=== PATIENT | male | born 1985 | race African-American/Black ===

== ENCOUNTER 2018-08-09 10:05 | Day surgery (SDC) | payer BC ==
--- NOTE | 2018-08-06 23:15 | Pre-op HX & Phy Repo 2 SIG ---
DATE OF ADMISSION: 08/09/2018 DATE OF SURGERY: Scheduled for 08/09/2017. 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 HISTORY: The patient is a pleasant 33-year-old gentleman who I initially saw on July 12, 2018 when he presented with severe traction and retinal detachments in both eyes. He has had decreased vision in both eyes occurring for approximately the past several months. He was noted elsewhere to have traction retinal detachment. He is now being admitted for pars plana vitrectomy, membrane peel, endolaser to his left eye. PAST MEDICAL HISTORY: Positive for type 2 diabetes since 2002, hypertension. PAST SURGICAL HISTORY: Notable for wrist fracture surgery and tonsillectomy at age 4. MEDICATIONS: Include metformin, lisinopril. ALLERGIES: He has no known drug allergies. PHYSICAL EXAMINATION: On examination visual acuity of hand motion to the right, 20/250 in the left eye. in the right eye, in the left eye. Slit-lamp demonstrates the conjunctiva is quiet, the cornea is clear. The anterior chamber is quiet. Lens are clear. 2+ nuclear sclerosis in the right eye and 1+ nuclear sclerosis in the left eye with no iris neovascularization noted . Dilated vitreoretinal examination of the right eye demonstrated hemorrhage in the media of the corpus. Neovascularization in the optic disk with a large inferior subhyaloid hemorrhage and a severe traction detachment involving the entire posterior pole and left eye media as hemorrhage and 3+ neovascularization of the optic disc. The cup-to-disc ratio is 0.4. There are some attenuated vessels and epiretinal membrane with a severe tractional retinal detachment overlying the posterior pole. IMPRESSION: Proliferative diabetic retinopathy with severe traction and retinal detachment. I discussed my findings with After detailed discussion of risks, benefits, and alternatives, I will recommend vitrectomy, membrane peel, endolaser of the left eye, more likely require silicone oil to maintain a retinal reattachment. Other complications such as loss of vision, loss of eye, cataract, ptosis, glaucoma, strabismus were all discussed. He understands and agrees to the surgery. Tyler Seymour M.D. DR: Christina JOB#: [id number] CC:
[~2018-08-09] VITALS: Ht 188 cm; Wt 99.8 kg
[~2018-08-09 10:05] MED LIST: METFORMIN HCL500 M1 ORAL
--- NOTE | 2018-08-09 12:39 | Pre-Procedure Note/Attestation ---
Pre-Procedure Note/Attestation Complete Prior to Procedure Planned Procedure: left Procedure Narrative: pars plana vitrectomy with membrane peel, endolaser, possible gas or silicone oil injection Indications for Procedure Pre-Operative Diagnosis: proliferative diabetic retinopathy with vitreous hemorrhage and traction retinal detachment. Attestation I attest that I discussed the nature of the procedure; its benefits; risks and complications; and alternatives (and the risks and benefits of such alternatives ), prior to the procedure, with the patient (or the patient's legal career representative). I attest that, if there was a reasonable possibility of needing a blood transfusion, the patient (or the patient's legal career representative) was given the [place] Department of Health Services standardized written summary, pursuant to the [place] Blood Safety Act ([place] Health and Safety Code # 1645, as amended). I attest that I re-evaluated the patient just prior to the surgery and that there has been no change in the patient's H&P, except as documented below: Tyler Seymour MD Aug 09, 2018 12:39
[2018-08-09] MEDS ORDERED: Lidocaine 4% Amp ONE (14:20)
[2018-08-09] MEDS ORDERED: Cyclopentolate 1% Opth Sol 2ml ONE (14:20)
[2018-08-09] MEDS ORDERED: Tropicamide 1% Opth 15ml Soln ONE (14:20)
[2018-08-09] MEDS ORDERED: Phenylephrine 2.5% Op 2ml Soln ONE (14:20)
[2018-08-09] MEDS ORDERED: EPINEPHrine 1mg/1ml Amp ONE (14:20)
[2018-08-09] MEDS ORDERED: Goniotaire 2.5% Opth Soln - 15ml ONE (14:20)
[2018-08-09] MEDS ORDERED: Bupivacaine 0.75% 30ml vial INJ ONE (14:21)
[2018-08-09] MEDS ORDERED: BSS 500ml btl ONE (14:21)
[2018-08-09] MEDS ORDERED: BSS 15ml BTL ONE (14:21)
[2018-08-09] MEDS ORDERED: Vigamox Opth Soln 3ml ONE (14:21)
[2018-08-09] MEDS ORDERED: Tetracaine 0.5% Opth 4ml Soln ONE (14:21)
[2018-08-09] MEDS ORDERED: Povidone-Iodine 5% opth solution ONE (14:21)
[2018-08-09] MEDS ORDERED: Indocyanine Green 25mg Inj INJ ONE (14:30)
[2018-08-09] MEDS ORDERED: LR 1000ml 1,000 ML IVLG SCH (14:58)
--- NOTE | 2018-08-09 14:58 | Anethesia Preoperative Eval ---
Anesthesia Pre-op PMH/ROS General Date of Evaluation: Aug 09, 2018 Anesthesiologist: Gustabo ASA Score: ASA 2 Mallampati Score Class I : Soft palate, uvula, fauces, pillars visible Class II: Soft palate, uvula, fauces visible Class III: Soft palate, base of uvula visible Class IV: Only hard plate visible Mallampati Classification: Class III Surgeon: Dawn Diagnosis: Left retinal detachment Surgical Procedure: Left eye vitrecomty Anesthesia History: none Family History: no anesthesia problems Allergies: Coded Allergies: No Known Allergies (Unverified , 08/05/18) Medications: see eMAR Patient NPO?: Yes NPO Date: Aug 08, 2018 NPO Time: 22:00 Past Medical History Cardiovascular: Reports: HTN; Denies: CAD, [place], valve dz, arrhythmia, other Pulmonary: Denies: asthma, COPD, KARLA, other Gastrointestinal/Genitourinary: Denies: GERD, CRI, ESRD, other Neurologic/Psychiatric: Reports: depression/anxiety; Denies: dementia, CVA, TIA, other Endocrine: Reports: DM; Denies: hypothyroidism, steroids, other HEENT: Denies: cataract (L), cataract (R), glaucoma, [place] (L), [place] (R), other Hematology/Immune: Denies: anemia, DVT, bleeding disorder, other Musculoskeletal/Integumentary: Denies: OA, RA, DJD, DDD, edema, other Other: obesity Anesthesia Pre-op Phys. Exam Physician Exam see chart Constitutional: NAD Cardiovascular: RRR Respiratory: CTA Airway Exam Mallampati Score: Class II MO: limited ROM: limited Teeth: intact Anesthesia Pre-op A/P Labs see chart Studies Pre-op Studies: EKG - sr Risk Assessment & Plan Assessment: ASA II Plan: MAC Status Change Before Surgery: No Pre-Antibiotics Drug: N/A Ashanti Velasco MD Aug 09, 2018 14:58
[2018-08-09 15:00] VITALS: BP 146/88
[2018-08-09] MEDS ORDERED: Vigamox Opth Soln 3ml LEFT EYE SCH (15:00)
[2018-08-09] MEDS ORDERED: DiphenhydrAMINE 50mg/ml Inj IVP PRN (15:00)
[2018-08-09] MEDS ORDERED: Tetracaine 0.5% Opth 4ml Soln LEFT EYE SCH (15:00)
[2018-08-09] MEDS ORDERED: Midazolam 2mg/2ml Inj ONE ×3 (15:01→16:20)
[2018-08-09] MEDS ORDERED: Propofol 200mg/20ml IV ONE (15:02)
[2018-08-09] MEDS ORDERED: fentaNYL 100 mcg/2 mL IV ONE (15:02)
[2018-08-09] MEDS ORDERED: Phenylephrine 2.5% Op 2ml Soln LEFT EYE ONE (15:15)
[2018-08-09] MEDS: Cyclopentolate 1% Opth Sol 2ml LEFT EYE SCH ×3 (15:18→15:29)
[2018-08-09] MEDS: Tropicamide 1% Opth 15ml Soln LEFT EYE SCH ×3 (15:19→15:29)
[2018-08-09] MEDS ORDERED: Vigamox Opth Soln 3ml LEFT EYE ONE (15:30)
[2018-08-09] MEDS ORDERED: DiphenhydrAMINE 50mg/ml Inj ONE ×2 (15:40→16:20)
[2018-08-09] MEDS ORDERED: Dexamethasone 4mg/ml vial ONE (15:58)
[2018-08-09] MEDS ORDERED: Sterile Water Irrig 1000ml IRRIG ONE (16:00)
[2018-08-09] MEDS ORDERED: LR 1000ml ONE (16:00)
[2018-08-09] MEDS ORDERED: Lidocaine 1% MPF 10mg/ml 5ml ONE (16:00)
[2018-08-09] MEDS ORDERED: NS Irrig 1000ml ONE (16:00)
[2018-08-09 17:10] VITALS: BP 131/84
--- NOTE | 2018-08-09 17:13 | Brief Operative Note ---
Immediate Post Operative Note Operative Note Pre-op Diagnosis: proliferative diabetic retinopathy with vitreous hemorrhage and traction retinal detachment. Procedure: pars plana vitrectomy with membrane peel, endolaser, and silicone oil injection Post-op Diagnosis: same as pre-op Findings: consistent w/pre-op dx studies Surgeon: Dawn Anesthesiologist: Gustabo Anesthesia: local, MAC Specimen: none Complications: none Condition: stable Fluids: 0 Estimated Blood Loss: none Drains: none Packin Tourniquet time: 0 Implant(s) used?: No Tyler Seymour MD Aug 09, 2018 17:13
[2018-08-09] MEDS ORDERED: Flumazenil 0.1mg/ml 5ml Inj IV ONE (17:14)
[2018-08-09 17:15] VITALS: BP 117/85
--- NOTE | 2018-08-09 17:19 | Immediate Post-Op Evaluation ---
Immediate Post-Op Evalulation Immediate Post-Op Evalulation Procedure: Left eye vitrectomy Date of Evaluation: Aug 09, 2018 Time of Evaluation: 17:15 IV Fluids: 600 Blood Products: 0 Estimated Blood Loss: 0 Urinary Output: 0 Blood Pressure Systolic: 131 Blood Pressure Diastolic: 84 Pulse Rate: 112 Respiratory Rate: 21 O2 Sat by Pulse Oximetry: 100 Temperature (Fahrenheit): 97 Pain Score (1-10): 0 Nausea: No Vomiting: No Complications 0 Patient Status: awake, reacts, patent, none Hydration Status: adequate Drug: N/A Ashanti Velasco MD Aug 09, 2018 17:19
[2018-08-09 17:20] VITALS: BP 134/84
--- NOTE | 2018-08-09 17:20 | 48 Hour Post Anesthesia Eval ---
Post Anesthesia Evaluation Procedure: Left eye vitrectomy Date of Evaluation: Aug 09, 2018 Airway: patent Nausea: No Vomiting: No Pain Intensity: 0 Hydration Status: adequate Cardiopulmonary Status: at baseline Mental Status/LOC: patient returned to baseline Post-Anesthesia Complications: 0 Follow-up care needed: ready to discharge Ashanti Velasco MD Aug 09, 2018 17:20
[2018-08-09 17:30] VITALS: BP 139/88
[2018-08-09] MEDS ORDERED: LORazepam Inj 2mg/ml 1ml IV PRN (17:30)
[2018-08-09 17:50] VITALS: BP 141/91
--- NOTE | 2018-08-09 18:00 | NUR ---
POST OP INSTRUCTIONS GIVEN . ADVICE PATIENT TO KEEP HEAD DOWN X 1 DAY AND TO KEEP PATCH AND SHIELD ON LEFT EYE AT ALL TIMES . PATIENT UNDERSTOOD AND ACKNOWLEDGED. ALSO INSTRUCTED . DISCHARGED HOME BY WHEELCHAIR FULLY AWAKE AND ALERT IN STABLE CONDITION EYE PATCH INTACT NO BLEEDING NOTED . NO C/O PAIN.
--- NOTE | 2018-08-09 20:30 | Operative Note - Dictated ---
DATE OF OPERATION: 08/09/2018 PREOPERATIVE DIAGNOSIS: Proliferative diabetic retinopathy with combined traction rhegmatogenous retinal detachment, left eye. POSTOPERATIVE DIAGNOSIS: Proliferative diabetic retinopathy with combined traction rhegmatogenous retinal detachment, left eye. PROCEDURE: Pars plana vitrectomy with membrane peel, endolaser, silicone oil injection, left eye. SURGEON: Tyler Seymour M.D. PAPERBACK MACHINE OPERATOR: Unassisted. ANESTHESIA: Local (4% lidocaine and 0.75% bupivacaine via retrobulbar injection). COMPLICATIONS: None. DESCRIPTION OF PROCEDURE: After informed consent was obtained, clearance from anesthesia, identification by Dr. Seymour, the patient was brought into the operating room where he received his anesthetic injection and the left eye was prepped and draped in usual sterile ophthalmic fashion. A wire lid speculum was placed in the conjunctival fornices and a 3 port 23-gauge vitrectomy was created in this phakic patient with peritomies and sclerotomies created 4 mm posterior to surgical limbus supratemporal, inferotemporal, and supranasal. Once the infusion cannula was noted to be inside the eye, infusion was turned on. The cortical vitreous then removed from the posterior surface of the lens to the surface of the retina and the vitreous was excised to the vitreous base. The posterior hyaloid was noted to be firmly attached along the posterior pole the optic nerve out to the arcades. In addition, there was dense vitreous hemorrhage noted and a large detachment was noted. By beginning with the peripheral traction, which was released using the ocutome, vacuum needle was used to remove blood and the forceps were used to start to begin segmenting the membrane off the optic disc. Using a combination of these techniques, I was able to remove most of the preretinal membrane from the posterior pole. There were some tightly adherent areas around the nasal preoptic discs and these were left in situ as it was felt that the surgical objectives for the macula from the traction was accomplished. There was a break noted just temporal to the macula and a fluid air exchange was performed. The retina flattened nicely. Endolaser was applied around this break as well as an apparent ablation and approximately 700 spots were applied using power 400 mW exposure time 0.05 seconds. A good uptake was noted practically all the application. The eye was examined using scleral depression. No other holes or tears were noted. The 1000 [place] silicone oil was injected into the eye and then the trocar and cannulas were removed. The wounds were closed using 7-0 Vicryl. The conjunctiva was closed using 6-0 plain suture. Subconjunctival cefazolin, Decadron, topical atropine drops were placed in the eye, which was patched and shielded. The patient left the operating room in stable condition. Tyler Seymour M.D. DR: LONA JOB#: [id number] CC:
--- NOTE | 2018-08-11 17:41 | Cardiology Report ---
APPROVED REPORT EKG Measurement Heart [id number] Normal sinus rhythm Normal ECG
== END 2018-08-09 18:07 | disposition home or self-care (01) ==
LOC: SUR 10:05
DX: E11.354 Type 2 diabetes mellitus with proliferative diabetic retinopathy with combined traction retinal detachment and rhegmatogenous retinal detachment (principal); Z79.84 Long term (current) use of oral hypoglycemic drugs; I10 Essential (primary) hypertension; F32.9 Major depressive disorder, single episode, unspecified; F41.9 Anxiety disorder, unspecified; E66.9 Obesity, unspecified; F17.200 Nicotine dependence, unspecified, uncomplicated; F12.90 Cannabis use, unspecified, uncomplicated
CPT/HCPCS: 67113; 82962; 93005; J0171; J0690; J1100; J1200; J2250; J2704; J3010; J3470; J3490; 94003; 94150

== ENCOUNTER 2018-10-01 10:23 | Day surgery (SDC) | payer BC ==
--- NOTE | 2018-09-29 19:45 | Pre-op HX & Phy Repo 2 SIG ---
DATE OF ADMISSION: 10/01/2018 HISTORY OF PRESENT ILLNESS: The patient is a pleasant 33-year-old gentleman. I initially saw in June 2018 with severe proliferative diabetic retinopathy and traction retinal detachment. He underwent vitrectomy with silicone oil injection to his left eye in 08/09/2018. He has some hemorrhage compartmentalize between oil and the surface of the retina that was noted after the surgery. He is now being admitted for pars plana vitrectomy with silicone oil removal, possible additional membrane peel, and endolaser to the left eye. In the meantime, his right eye has had rebleed and has a severe tractional retinal detachment. PAST MEDICAL HISTORY: Remarkable for type 2 diabetes since 2002, hypertension. PAST SURGICAL HISTORY: Remarkable for wrist fracture, tonsillectomy as well as the above vitrectomy. MEDICATIONS: Include metformin, lisinopril. ALLERGIES: No known drug allergies. PHYSICAL EXAMINATION: Visual acuity is hand motion in the right eye. Light perception in the left eye. Tension 14 in the right, 24 in the left eye. Slit-lamp demonstrated the conjunctiva are quiet. Anterior chambers are quiet. Corneas are clear. There is 2+ nuclear sclerosis of the lens in the right eye and left side, the cornea is clear. There is just a trace flare. There is a 1+ nuclear sclerosis of the lens with some . Dilated vitreoretinal examination in the right eye demonstrates hemorrhage with a large traction detachment. Left eye, the eye is silicone oil filled, status post vitrectomy. Distant vitreous hemorrhage noted that appears old and likely some macular edema with hard exudate and some epiretinal membranes were noted in the mid periphery. There is coagulation scar in the periphery as well. IMPRESSION: A +2 diabetic retinopathy with traction retinal detachment, status post vitrectomy with silicone oil, left eye. PLAN: I discussed my findings with the patient. After detailed discussion of risks, benefits, and alternatives. I will recommend a vitrectomy and removal of silicone oil, possible membrane peel, additional endolaser to the left side. Complications such as retinal detachment, hemorrhage, infection, loss of vision, loss of eye, ptosis, glaucoma, strabismus, cataract were discussed. He understands and agrees to the surgery. He understands the visual prognosis is guarded to poor even with surgery due to the extensive diabetic changes noted in the eye. Tyler Seymour M.D. DR: Christina JOB#: [id number] CC:
[~2018-10-01] VITALS: Ht 188 cm; Wt 103.0 kg
[~2018-10-01 10:23] MED LIST changes: +HYDROCODON-ACE1 EA15 ORAL; +LISINOPRIL20 MG ORAL; +Vigamox Opth Soln 3ml LEFT EYE SCH
[2018-10-01] MEDS ORDERED: Phenylephrine 2.5% Op 2ml Soln ONE (10:47)
[2018-10-01] MEDS ORDERED: Vigamox Opth Soln 3ml ONE (10:47)
[2018-10-01] MEDS ORDERED: Tropicamide 1% Opth 15ml Soln ONE (10:47)
[2018-10-01] MEDS ORDERED: Cyclopentolate 1% Opth Sol 2ml ONE (10:47)
[2018-10-01] MEDS: Cyclopentolate 1% Opth Sol 2ml LEFT EYE SCH ×3 (11:07→11:21)
[2018-10-01] MEDS: Phenylephrine 2.5% Op 2ml Soln LEFT EYE SCH ×3 (11:07→11:21)
[2018-10-01] MEDS: Tropicamide 1% Opth 15ml Soln LEFT EYE SCH ×3 (11:07→11:20)
[2018-10-01 11:11] VITALS: BP 156/89
[2018-10-01] MEDS ORDERED: EPINEPHrine 1mg/1ml Amp ONE (11:48)
[2018-10-01] MEDS ORDERED: Lidocaine 4% Amp ONE (11:48)
[2018-10-01] MEDS ORDERED: Dexamethasone 4mg/ml vial ONE (11:49)
[2018-10-01] MEDS ORDERED: Povidone-Iodine 5% opth solution ONE (11:49)
[2018-10-01] MEDS ORDERED: BSS 500ml btl ONE (11:49)
[2018-10-01] MEDS ORDERED: BSS 15ml BTL ONE ×2 (11:49→12:05)
[2018-10-01] MEDS ORDERED: Tetracaine 0.5% Opth 4ml Soln ONE (11:49)
[2018-10-01] MEDS ORDERED: Bupivacaine 0.75% 30ml vial INJ ONE (11:49)
[2018-10-01] MEDS ORDERED: Goniotaire 2.5% Opth Soln - 15ml ONE (11:49)
[2018-10-01] MEDS ORDERED: fentaNYL 100 mcg/2 mL IV ONE (11:51)
[2018-10-01] MEDS ORDERED: Midazolam 2mg/2ml Inj ONE (11:51)
[2018-10-01] MEDS ORDERED: Propofol 200mg/20ml IV ONE (11:51)
[2018-10-01] MEDS ORDERED: Indocyanine Green 25mg Inj INJ ONE (12:00)
--- NOTE | 2018-10-01 12:26 | Anethesia Preoperative Eval ---
Anesthesia Pre-op PMH/ROS General Date of Evaluation: Oct 01, 2018 Time of Evaluation: 12:22 Anesthesiologist: Walt ASA Score: ASA 3 Mallampati Score Class I : Soft palate, uvula, fauces, pillars visible Class II: Soft palate, uvula, fauces visible Class III: Soft palate, base of uvula visible Class IV: Only hard plate visible Mallampati Classification: Class III Surgeon: Dawn Diagnosis: Diabetic retinopathy Surgical Procedure: L eye PPV Anesthesia History: none Social History: smoking - h/o Family History: no anesthesia problems Allergies: Coded Allergies: No Known Allergies (Unverified , 10/01/18) Medications: see eMAR Patient NPO?: Yes Past Medical History Cardiovascular: Reports: HTN - poorly controlled; Denies: CAD, [place], valve dz, arrhythmia, other Pulmonary: Denies: asthma, COPD, KARLA, other Gastrointestinal/Genitourinary: Reports: GERD; Denies: CRI, ESRD, other Neurologic/Psychiatric: Reports: depression/anxiety; Denies: dementia, CVA, TIA, other Endocrine: Reports: DM - poorly controled; Denies: hypothyroidism, steroids, other HEENT: Reports: other - retinopathy both eyes, legaly blind; Denies: cataract (L), cataract (R), glaucoma, [place] (L), [place] (R) Hematology/Immune: Reports: anemia - mild; Denies: DVT, bleeding disorder, other Musculoskeletal/Integumentary: Denies: OA, RA, DJD, DDD, edema, other PMH Narrative: as above PSxH Narrative: T&A eye Sx Anesthesia Pre-op Phys. Exam Physician Exam Last Vital Signs Date Time Temp Pulse Resp B/P (MAP) Pulse Ox O2 Delivery O2 Flow Rate FiO2 10/01/18 11:13 Room Air 10/01/18 11:11 98.4 85 18 156/89 100 Constitutional: NAD Neurologic: CN 2-12 intact Cardiovascular: RRR, no M/R/G Respiratory: CTA Gastrointestinal: S/NT/ND Airway Exam Mallampati Score: Class II MO: full Neck: flexible ROM: full Teeth: other - poor oral hygeen significat paradontosis Dentures: no upper, no lower Anesthesia Pre-op A/P Labs see chart Studies Pre-op Studies: EKG - NSR Risk Assessment & Plan Assessment: ASA 3 Plan: MAC with retrobulbar block Status Change Before Surgery: No Pre-Antibiotics Drug: none Everardo Godoy MD Oct 01, 2018 12:26
[2018-10-01] MEDS ORDERED: Sterile Water Irrig 1000ml IRRIG ONE (12:30)
[2018-10-01] MEDS ORDERED: NS Irrig 1000ml ONE (12:30)
[2018-10-01] MEDS ORDERED: LR 1000ml ONE (12:30)
--- NOTE | 2018-10-01 12:32 | Pre-Procedure Note/Attestation ---
Pre-Procedure Note/Attestation Complete Prior to Procedure Planned Procedure: left Procedure Narrative: pars plana vitrectomy with removal of silicone oil, possible membrane peel, possible endolaser, and gas or oil reinjection. Indications for Procedure Pre-Operative Diagnosis: Proliferative diabetic retinopathy, vitreous hemorrhage, traction retinal detachment Attestation I attest that I discussed the nature of the procedure; its benefits; risks and complications; and alternatives (and the risks and benefits of such alternatives ), prior to the procedure, with the patient (or the patient's legal admitting representative). I attest that, if there was a reasonable possibility of needing a blood transfusion, the patient (or the patient's legal admitting representative) was given the [place] Department of Health Services standardized written summary, pursuant to the [place] Blood Safety Act ([place] Health and Safety Code # 1645, as amended). I attest that I re-evaluated the patient just prior to the surgery and that there has been no change in the patient's H&P, except as documented below: Tyler Seymour MD Oct 01, 2018 12:32
[2018-10-01] MEDS ORDERED: LR 1000ml 1,000 ML IVLG SCH (13:03)
[2018-10-01] MEDS ORDERED: fentaNYL 100 mcg/2 mL IV PRN (13:15)
[2018-10-01 13:35] VITALS: BP 144/97
--- NOTE | 2018-10-01 13:37 | Immediate Post-Op Evaluation ---
Immediate Post-Op Evalulation Immediate Post-Op Evalulation Procedure: L eye PPV silicone oil removal laser treatment Date of Evaluation: Oct 01, 2018 Time of Evaluation: 13:36 IV Fluids: 400 Blood Products: none Estimated Blood Loss: min Urinary Output: none Blood Pressure Systolic: 144 Blood Pressure Diastolic: 97 Pulse Rate: 78 Respiratory Rate: 20 O2 Sat by Pulse Oximetry: 99 Temperature (Fahrenheit): 98.1 Pain Score (1-10): 1 Nausea: No Vomiting: No Complications none Patient Status: awake, patent, none Hydration Status: adequate Everardo Godoy MD Oct 01, 2018 13:36
--- NOTE | 2018-10-01 13:38 | 48 Hour Post Anesthesia Eval ---
Post Anesthesia Evaluation Procedure: L eye PPV silicone oil removal laser treatment Date of Evaluation: Oct 01, 2018 Time of Evaluation: 14:10 Blood Pressure Systolic: 136 0: 72 Pulse Rate: 82 Respiratory Rate: 20 Temperature (Fahrenheit): 97.8 O2 Sat by Pulse Oximetry: 98 Airway: patent Nausea: No Vomiting: No Pain Intensity: 2 Hydration Status: adequate Cardiopulmonary Status: stable Mental Status/LOC: patient returned to baseline Follow-up Care/Observations: n/a Post-Anesthesia Complications: none Follow-up care needed: ready to discharge Everardo Godoy MD Oct 01, 2018 13:38
[2018-10-01 13:40] VITALS: BP 152/97
[2018-10-01 13:45] VITALS: BP_SYST 152; BP_SYST 154; BP_DIAS 91; BP_DIAS 93
[2018-10-01 14:05] VITALS: BP 150/90
--- NOTE | 2018-10-03 03:45 | Operative Note - Dictated ---
DATE OF OPERATION: 10/01/2018 PREOPERATIVE DIAGNOSES: Diabetic retinopathy, vitreous hemorrhage, traction retinal detachment, left eye, status post vitrectomy with silicone oil. POSTOPERATIVE DIAGNOSES: Diabetic retinopathy, vitreous hemorrhage, traction retinal detachment, left eye, status post vitrectomy with silicone oil. PROCEDURE: Pars plana vitrectomy, removal of silicone oil with membrane peel, and endolaser, left eye. SURGEON: Tyler Seymour M.D. ANESTHESIA: Local (4% lidocaine and 0.75% bupivacaine via retrobulbar injection). COMPLICATIONS: None. PROCEDURE IN DETAIL: After informed consent was obtained, clearance from anesthesia, identification by Dr. Seymour, the patient was brought to the operating room. He received his anesthetic injections and his left eye was prepped and draped in usual sterile ophthalmic fashion. A wire lid speculum was placed in the conjunctival fornices and a 3-port 23-gauge vitrectomy was created in this pseudophakic patient with trocars and cannulas placed 4 mm posterior to the surgical limbus supratemporally, supranasally, and inferotemporal. Once the infusion cannula was noted to be inside the eye, the infusion was turned on. The silicone oil was then removed previously vitrectomized eye. Once the was removed, there was a large amount of old clotted blood on the surface of the posterior pole, which was engaged using the vacuum needle and aspirated off the retinal surface. Once this was accomplished, some persistent vitreous was noted to be present inferiorly anterior-posterior traction was then lysed using the ocutome. There are other membranes noted specifically temporal and there was some subretinal blood noted. However, I thought the objectives of the surgery were accomplished, and I elected to leave some of these membranes alone due to the severe ischemia of the retina. Once this was accomplished, endolaser was then applied ablation approximately 1000 spots were applied using power of 400 mW and at first time 0.05 seconds. A good uptake was noted application. The eye was then examined using scleral depression. No other new holes or tears were noted on the periphery. The trocar and cannulas then were removed. The wounds were noted to be water tight. The conjunctiva was closed using 6-0 plain suture. Subconjunctival cefazolin, Decadron, and topical atropine drops were placed. The eye was patched and shielded. The patient left the operating room in stable condition. Tyler Seymour M.D. DR: GURPREET JOB#: [id number] CC:
== END 2018-10-01 14:15 | disposition home or self-care (01) ==
LOC: SUR 10:23
DX: E11.319 Type 2 diabetes mellitus with unspecified diabetic retinopathy without macular edema (principal); H43.12 Vitreous hemorrhage, left eye; H33.42 Traction detachment of retina, left eye; Z79.84 Long term (current) use of oral hypoglycemic drugs; I10 Essential (primary) hypertension; K21.9 Gastro-esophageal reflux disease without esophagitis; F32.9 Major depressive disorder, single episode, unspecified; F41.9 Anxiety disorder, unspecified; D64.9 Anemia, unspecified; Z87.891 Personal history of nicotine dependence; Z79.899 Other long term (current) drug therapy; Z82.3 Family history of stroke; Z82.49 Family history of ischemic heart disease and other diseases of the circulatory system; Z81.8 Family history of other mental and behavioral disorders; F17.210 Nicotine dependence, cigarettes, uncomplicated
CPT/HCPCS: 67015; 67040; 82962; J0171; J0690; J1100; J2250; J2704; J3010; J3470; J3490; 94003; 94150